=== PATIENT | male | born 1935 | race African-American/Black ===

== ENCOUNTER 2016-12-19 12:56 | Inpatient (IN) ==
--- NOTE | 2016-12-19 15:15 | EKG Report ---
Stationary ECG Study [facility] Test Date: 12/19/2016 3:16:22 PM Pat Name: JOSE CORONADO Department: Room: 319 Gender: M Elevator Builder: EDUARDO : 1935 Requested by: Mukul Flores Order Number: [id number] Reading MD: NISA HILTON Intervals [place] Rate: 59 P: 19 [place]: 150 QRS: 259 QRSD: 181 T: -12 QT: 421 QTc: 420 Interpretive Statements SINUS RHYTHM WITH SINUS ARRHYTHMIA RIGHT AXIS DEVIATION RIGHT BUNDLE BRANCH BLOCK POSSIBLE LEFT VENTRICULAR HYPERTROPHY INFERIOR MYOCARDIAL INFARCTION, PREVIOUSLY CITED Electronically Signed On 12-24-16 07:17:42 CDT by NISA HILTON [email or web address]
[2016-12-19] MEDS ORDERED: VANCOMYCIN INJ 1,000 MG in SODIUM CHLORIDE 0.9% 250 ML IV ONE (15:30)
[2016-12-19 15:50] LABS: Basophils # 0.1 10*3/uL (0.0-0.2); Eosinophils # 0.3 10*3/uL (0.0-0.87); Eosinophils % 3.1 % (0.00-10.9); Hematocrit 41.1 VOL% (42.0-52.0); Hemoglobin 13.2 GM/DL (14.0-18.0); Immature Granulocytes % 0.2 %; Immature Granulocytes Absolute 0.02 #; Lymphocytes # 2.1 10*3/uL (1.4-4.0); Lymphocytes % 25.2 % (21.2-54.2); Mean Corpuscular HGB Conc 32.1 GM/DL (32-36); Mean Corpuscular Hemoglobin 31 PG (27-34); Mean Corpuscular Volume 95.4 FL (87-102); Monocytes # 0.7 10*3/uL (0.11-0.8); Monocytes % 8.1 % (1.7-12.7); Neutrophils # 5.2 10*3/uL (1.4-7.4); Neutrophils % 62.4 % (38.7-73.9); Platelet Count 136 T/CUMM (130-400); Red Blood Count 4.31 MC/CUMM (3.8-5.5); Red Cell Distribution Width 13.7 % (9.3-17.3); White Blood Count 8.3 T/CUMM (4-12)
--- NOTE | 2016-12-19 15:51 | XRay Report ---
Referring Physician: Mukul Flores Exam: XR chest 1V portable Date: December 19, 2016 at 3:03 PM Reason: Preoperative respiratory evaluation Comparison: Chest one view portable September 08, 2014 Findings: The cardiac silhouette is again enlarged, and the patient is status post sternotomy. No focal consolidation, pneumothorax or pleural effusion is identified. No acute osseous process is seen. Impression: 1. Cardiomegaly. 2. No acute pulmonary process is identified. PROCEDURE INTERPRETED AT [facility] DEPARTMENT OF RADIOLOGY Final Report Signed by: Dr. Jonnie Spencer
[2016-12-19 16:03] LABS: INR 1.2; PT Patient Result 12.9 SECS; Partial Thromboplastin Time 27.5 SECS (0-40)
[2016-12-19] MEDS ORDERED: diphenhydrAMINE CAP 25 MG CAPSULE PO PRN (16:10)
[2016-12-19] MEDS ORDERED: MAGNESIUM HYDROXIDE SUSP 30 ML UDCUP PO PRN (16:10)
[2016-12-19] MEDS ORDERED: ONDANSETRON 4 MG/2 ML VIAL IV PRN (16:10)
[2016-12-19] MEDS ORDERED: TEMAZEPAM 7.5 MG CAPSULE PO PRN (16:10)
[2016-12-19 16:12] LABS: Albumin 3.3 G/DL (3.4-5.0); Bilirubin,Total 0.7 MG/DL (0.2-1.0); Calcium 9.2 MG/DL (8.5-10.1); Osmolality,Calculated 287.1 MOS/KG (273-304); Potassium 4.8 MMOL/L (3.5-5.1); Total Protein 7.1 G/DL (6.4-8.3)
[2016-12-19 17:16] LABS: Apearance,Urine Slightly Hazy (Clear); Bilirubin,Urine Negative (Negative); Blood, Urine Small mg/dL (Negative); Glucose,Urine (UA) Negative (Negative); Ketones,Urine Negative (Negative); Nitrite,Urine Negative (Negative); Protein,Urine Negative; RBC,Urine 2 /HPF (0-4); Squamous Epithelial Cell,Urine Occasional /HPF (0-10); Urine Color Yellow (Yellow); Urine Urobilinogen < 2.0 EU/DL (0.2-1.0); WBC,Urine 18 /HPF (0-6)
[2016-12-19] MEDS: DOCUSATE SODIUM 100 MG CAPSULE PO SCH (20:37)
[2016-12-19] MEDS ORDERED: MELOXICAM 7.5 MG TABLET PO PRN (20:57)
[2016-12-19] MEDS ORDERED: NITROGLYCERIN SL 0.4 MG TABLET SL PRN (20:57)
--- NOTE | 2016-12-19 21:03 | Cardiology Consult Note ---
I, Stephany Cosme RN, am scribing for, and in the presence of, Chris Lynn MD 21:02. Assessment and Plan - Time spent with patient Time spent with patient: Greater than 30 minutes (Due to assessment, planning, documentation, medication review) (1) Preoperative evaluation to rule out surgical contraindication Status: Acute Assessment and plan: The patient has CAD, but no active angina at this time Plan/recommendation: 1 continue beta-libertad Hold AHSAN inhibitor and/or Norvasc and low blood pressure Reduce aspirin 81 mg daily Watch carefully postop This patient's cardiac risk of noncardiac surgery relatively low. less than 2 % chance of [place] arrhythmia or heart failure You may proceed. I will follow along with. The above was discussed with the patient Thank you for allowing me to participate in this patient's care Current Visit: Yes (2) CAD (coronary artery disease) Status: Chronic Current Visit: Yes Qualifiers: Coronary Disease-Associated Artery/Lesion type: bypass graft [place] vs. transplanted heart: [place] heart Associated angina: without angina Qualified Code(s): I25.810 - Atherosclerosis of coronary artery bypass graft(s) without angina pectoris (3) Ischemic cardiomyopathy Status: Chronic Current Visit: Yes (4) Diabetes mellitus Status: Chronic Current Visit: Yes (5) Dyslipidemia Status: Chronic Current Visit: Yes (6) Hypertension Status: Chronic Current Visit: Yes History of Present Illness - Data of Consult Patient: known to practice within the last 3 years Consult date: 12/19/16 Requesting Physician: Mukul Flores - Consult Narrative Reason for consult: See preoperatively for surgery tomorrow 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 Barnard is a 81 year old male who is routinely followed by Dr. Crawford with a history of CAD, ischemic cardiomyopathy, NIDDM, dyslipidemia, hypertension, and PVD. He had CABG April 25, 2006 with SORENSON to LAD, saphenous vein to circumflex, and saphenous vein sequential to ramus and diagonal. June 2006 he had successful intervention of the circumflex graft by Dr. Crawford. July 2014 he had a heart cath that demonstrated severe disease of the mid right coronary artery. He was brought back in in August 2014 to attempt PCI of the mid right coronary artery, this was unsuccessful. Echo done August 30 of this year with ejection fraction of 35%, moderate mitral regurgitation, trace aortic regurgitation, and mild tricuspid regurgitation. He also has a history of a AAA repair, bilateral cataract surgery, cholecystectomy, and a surgery to his foot for gout. Family history includes father and sister with diabetes and mother with cancer. He reports he does not currently smoke he quit about 40 years ago. Mr. Barnard is being admitted today by Dr. Flores for anticipated left total hip replacement tomorrow. We are being asked to see him preoperatively. He denies having had any chest pain, shortness of breath, palpitations, or dizziness presently or recently. At the time of this note there are no vital signs or labs in the chart. EKG done today shows sinus rhythm with right bundle branch block, heart rate 59. CC: Mukul Flores MD - Home Medications and Allergies Home Medications: Home Medications Medication Instructions Recorded Confirmed Type Aspirin Tab 325 mg PO DAILY 03/30/16 12/19/16 History Carvedilol 12.5 mg PO BID 03/30/16 12/19/16 History Clopidogrel [Plavix] 75 mg PO DAILY 03/30/16 12/19/16 History Colchicine [Colcrys] 0.6 mg PO BID 03/30/16 12/19/16 History Cyanocobalamin Tab [Vitamin B12 100 mcg PO DAILY 03/30/16 12/19/16 History Tab] Furosemide 40 mg PO DAILY PRN 03/30/16 12/19/16 History Gabapentin 100 mg PO BID 03/30/16 12/19/16 History Lisinopril 40 mg PO DAILY 03/30/16 12/19/16 History Meloxicam [Mobic] 15 mg PO DAILY PRN 03/30/16 12/19/16 History Nitroglycerin Sl Tab [Nitrostat] 1 tablet SL Q5M PRN 03/30/16 12/19/16 History Tamsulosin [Flomax] 0.4 mg PO DAILY 03/30/16 12/19/16 History amLODIPine [Norvasc] 5 mg PO DAILY 03/30/16 12/19/16 History HYDROcodone/ACETAMIN 10-325 [[place] 1 tablet PO Q12H PRN 12/19/16 12/19/16 History 10-325] Simvastatin 10 mg PO BEDTIME 12/19/16 12/19/16 History Allergies/Adverse Reactions: Allergies Allergy/AdvReac Type Severity Reaction Status Date / Time No Known Allergies Allergy Verified 03/30/16 08:53 - Constitutional Constitutional: Present: as per HPI - EENT Eyes: Present: requires corrective lense. Absent: blurry vision, loss of vision Ears: Absent: decreased hearing, ear pain, tinnitus Nose, mouth and throat: Absent: dysphagia, epistaxis, headache(s), neck pain, sore throat - Cardiovascular Cardiovascular: Absent: chest pain at rest, chest pain with activity, diaphoresis, dyspnea, dyspnea on exertion, edema, radiating jaw, neck or arm pain, lightheadedness, orthopnea, palpitations - Respiratory Respiratory: Absent: cough, dyspnea, hemoptysis, dyspnea on exertion, wheezing - Gastrointestinal Gastrointestinal: Absent: abdominal pain, constipation, diarrhea, hematemesis, hematochezia, melena, nausea, vomiting - Genitourinary Genitourinary: Absent: dysuria, hematuria - Musculoskeletal Musculoskeletal: Present: limited range of motion, muscle weakness - Neurological Neurological: Present: abnormal gait. Absent: abnormal speech, confusion, dizziness, frequent falls, headache(s), syncope - Psychiatric Psychiatric: Absent: anxiety, depression - Endocrine Endocrine: Present: fatigue - Hematologic/Lymphatic Hematologic/Lymphatic: Absent: easy bleeding, easy bruising Medical,Surgical,& Family Hx - Medical History Cardio: History of: CAD, Hypertension, [place] Endocrine: History of: Diabetes Mellitus (NIDDM), Dyslipidemia Rheumatology: History of;: Gout Respiratory: History of: Obstructive Sleep Apnea (Does not use c-pap machine) Genitourinary: History of: Prostate Problems (Takes Flomax) Gastrointestinal: History of: Bowel Obstruction, GI Problems (Pacreatic cyst) Musculoskeletal: History of: Back/Neck Problems (Back pain), Musculoskeletal Problems (Arthritis) - Surgical History Cardiac Surgeries: Sugical HX of: Cardiac Catheterization, Cardiac Surgery ( CABG 03/2006) HEENT Surgeries: Surgical HX of: Eye Surgery (Cataracts removed bilaterally) Abdominal Surgeries: Surgical HX of: Abdominal Surgery (Bowel obstruction), Appendectomy, Cholecystectomy, Colonoscopy, EGD Orthopedic Surgeries: Surgical HX of;: Orthopedic Surgery (RIGHT knee scope) Additional Surgical History: AAA repair - Family History Family History: Reports;: Family Cancer (Mother), Family Diabetes (Father and sister) - Social History Smoking Status: Former smoker (Reportedly quit smoking about 40 years ago) Have you smoked in the last 12 months: No Frequency of Alcohol Use: None Type of Drug Use: None Marital Status: Lives With:: Spouse Functional capacity: uses cane/walker (Has been using crutches because of his hip) Physical Examination Vital Signs Temp Pulse Resp BP Pulse Ox 98.2 F 60 18 140/82 98 12/19/16 14:10 12/19/16 14:10 12/19/16 14:10 12/19/16 14:10 12/19/16 14:10 General: Present: Appears Well, No Apparent Distress HEENT: Present: PERRL, Mucus Membranes Moist Neck: Present: Supple Neck, Midline Trachea, No Bruit Cardiac: Present: Reg Rate and Rhythm, No Murmur. Absent: Tachycardia Lungs: Present: Normal Breath Sounds, No Wheeze, Rales, Rhonchi. Absent: Oxygen Neuro: Absent: Resting Tremor, Essential Tremor Abdomen: Present: Soft, Active Bowel Sounds, Non-Tender. Absent: Distended Skin: Present: Clear Musculoskeletal: Present: Decreased Range of Motion Gait: Present: Poor Gait Extremities: Present: No Edema, Normal Upper Extr. Pulses, Normal Lower Extr. Pulses. Absent: Normal Gait Result/EKG - Labs CBC & BMP: 12/19/16 15:24 12/19/16 15:24 Labs: Laboratory Results - last 24 hr 12/19/16 12/19/16 12/19/16 15:24 15:24 15:24 WBC 8.3 RBC 4.31 Hgb 13.2 L Hct 41.1 L MCV 95.4 MCH 31 MCHC 32.1 RDW 13.7 Plt Count 136 MPV 13.0 H Neut % (Auto) 62.4 Lymph % (Auto) 25.2 [place] % (Auto) 8.1 Eos % (Auto) 3.1 Baso % (Auto) 1.0 H Neut # (Auto) 5.2 Lymph # (Auto) 2.1 [place] # (Auto) 0.7 Eos # (Auto) 0.3 Baso # (Auto) 0.1 Immature Gran % 0.2 Nucleated RBC % 0.0 Immature Gran # 0.02 Nucleated RBCs # 0.00 INR 1.2 PT Patient/Control Mix 12.9 Circ Anticoag PTT 27.5 Sodium 142 Potassium 4.8 Chloride 109 H Carbon Dioxide 27 Anion Gap 10.8 BUN 30 H Creatinine 1.10 GFR Calculation 94 BUN/Creatinine Ratio 27.00 H Glucose 88 Calculated Osmolality 287.1 Calcium 9.2 Total Bilirubin 0.70 AST 49 H ALT 49 Alkaline Phosphatase 125 H Total Protein 7.1 Albumin 3.3 L Globulin 3.8 H Albumin/Globulin Ratio 0.8 L Urine Color Urine Appearance Urine pH Ur Specific [place] Urine Protein Urine Glucose (UA) Urine Ketones Urine Blood Urine Nitrate Urine Bilirubin Urine Urobilinogen Urine Leukocytes Urine RBC Urine WBC Ur Squamous Epith Cells Ur Culture Indicated? Blood Type Antibody Screen 12/19/16 12/19/16 15:24 Unknown WBC RBC Hgb Hct MCV MCH MCHC RDW Plt Count MPV Neut % (Auto) Lymph % (Auto) [place] % (Auto) Eos % (Auto) Baso % (Auto) Neut # (Auto) Lymph # (Auto) [place] # (Auto) Eos # (Auto) Baso # (Auto) Immature Gran % Nucleated RBC % Immature Gran # Nucleated RBCs # INR PT Patient/Control Mix Circ Anticoag PTT Sodium Potassium Chloride Carbon Dioxide Anion Gap BUN Creatinine GFR Calculation BUN/Creatinine Ratio Glucose Calculated Osmolality Calcium Total Bilirubin AST ALT Alkaline Phosphatase Total Protein Albumin Globulin Albumin/Globulin Ratio Urine Color Yellow Urine Appearance Slightly hazy Urine pH 5.0 Ur Specific [place] 1.010 Urine Protein Negative Urine Glucose (UA) Negative Urine Ketones Negative Urine Blood Small Urine Nitrate Negative Urine Bilirubin Negative Urine Urobilinogen < 2.0 H Urine Leukocytes Small H Urine RBC 2 Urine WBC 18 Ur Squamous Epith Cells Occasional Ur Culture Indicated? Results to follow Blood Type O NEGATIVE Antibody Screen Negative - EKG EKG results: interpreted by me EKG shows: sinus rhythm IShane Dale, MD, personally performed the services described in this documentation, ascribed by Stephany Cosme RN in my presence, and it is both accurate and complete .
[2016-12-19] MEDS: GABAPENTIN 100 MG CAPSULE PO SCH (23:04)
[2016-12-19] MEDS: COLCHICINE 0.6 MG TABLET PO SCH (23:04)
[2016-12-19] MEDS: SIMVASTATIN 10 MG TABLET PO SCH (23:05)
[2016-12-19] MEDS: CARVEDILOL 12.5 MG TABLET PO SCH (23:05)
[2016-12-20] MEDS: SODIUM CHLORIDE 0.9% 1,000 ML IV SCH ×4 (01:41→21:23)
[2016-12-20 04:38] LABS: Basophils # 0.1 10*3/uL (0.0-0.2); Basophils % 0.8 % (0.0-0.8); Eosinophils # 0.3 10*3/uL (0.0-0.87); Eosinophils % 2.8 % (0.00-10.9); Hematocrit 37.4 VOL% (42.0-52.0); Hemoglobin 12.1 GM/DL (14.0-18.0); Immature Granulocytes % 0.3 %; Immature Granulocytes Absolute 0.03 #; Lymphocytes # 2.3 10*3/uL (1.4-4.0); Lymphocytes % 25.6 % (21.2-54.2); Mean Corpuscular HGB Conc 32.4 GM/DL (32-36); Mean Corpuscular Hemoglobin 30 PG (27-34); Mean Corpuscular Volume 92.6 FL (87-102); Mean Platelet Volume 13.2 FL (9.6-12.0); Monocytes # 0.9 10*3/uL (0.11-0.8); Monocytes % 10.1 % (1.7-12.7); Neutrophils # 5.3 10*3/uL (1.4-7.4); Neutrophils % 60.4 % (38.7-73.9); Platelet Count 124 T/CUMM (130-400); Red Blood Count 4.04 MC/CUMM (3.8-5.5); Red Cell Distribution Width 13.9 % (9.3-17.3); White Blood Count 8.8 T/CUMM (4-12)
[2016-12-20] MEDS ORDERED: VANCOMYCIN INJ 1,000 MG in SODIUM CHLORIDE 0.9% 250 ML IV ONE (05:00)
[2016-12-20 05:22] LABS: Calcium 8.8 MG/DL (8.5-10.1); Osmolality,Calculated 287.1 MOS/KG (273-304); Potassium 4.5 MMOL/L (3.5-5.1)
[2016-12-20] MEDS ORDERED: TRANEXAMIC ACID 1,000 MG/10 ML VIAL IV ONE (06:22)
[2016-12-20] MEDS ORDERED: ceFAZolin 2,000 MG in PREMIX 1 EACH IV ONE (06:30)
--- NOTE | 2016-12-20 07:27 | Orthopedic Progress Note ---
Assessment and Plan (1) Left displaced femoral neck fracture Status: Acute Assessment and plan: Plan left total hip arthroplasty today Appreciate cardiology consult Patient desires swing bed at discharge, will consult social work for this Current Visit: Yes (2) Primary osteoarthritis of left hip Status: Acute Assessment and plan: See above Current Visit: Yes Orthopedics - Subjective Interval history: Patient has no new complaints this morning. He is comfortable. States he is ready for surgery. Left lower extremity exam is unchanged from yesterday. Exam - Constitutional Vitals: Period Temp Pulse Resp BP Sys/Roberts Pulse Ox Last 24 Hr 98.2 F-99.9 F 59-66 16-20 117-141/74-82 97-99 Results - Labs CBC & BMP: 12/20/16 03:56 12/20/16 03:56
[2016-12-20] MEDS: DOCUSATE SODIUM 100 MG CAPSULE PO SCH ×3 (08:00→21:23)
[2016-12-20] MEDS: CYANOCOBALAMIN 100 MCG TABLET PO SCH (08:00)
[2016-12-20] MEDS: GABAPENTIN 100 MG CAPSULE PO SCH ×2 (08:00→21:22)
[2016-12-20] MEDS: TAMSULOSIN 0.4 MG CAPSULE PO SCH (08:00)
[2016-12-20] MEDS: COLCHICINE 0.6 MG TABLET PO SCH ×2 (08:00→21:22)
[2016-12-20] MEDS: ASPIRIN CHEW 81 MG TABLET PO SCH (08:00)
[2016-12-20] MEDS: amLODIPine 5 MG TABLET PO SCH (08:40)
[2016-12-20] MEDS: CARVEDILOL 12.5 MG TABLET PO SCH ×2 (08:40→21:22)
[2016-12-20] MEDS: LISINOPRIL 20 MG TABLET PO SCH (08:40)
[2016-12-20] MEDS ORDERED: BUPIVACAINE 0.5% 50 ML VIAL ONE (09:00)
[2016-12-20] MEDS ORDERED: CLOPIDOGREL 75 MG TABLET PO SCH (09:00)
[2016-12-20] MEDS ORDERED: EPINEPHrine 1 MG/ML VIAL ONE (09:00)
[2016-12-20] MEDS ORDERED: methylPREDNISolone SOD SUC 125 MG/2 ML VIAL ONE (09:01)
[2016-12-20] MEDS ORDERED: MORPHINE 10 MG/1 ML VIAL ONE (09:01)
[2016-12-20] MEDS ORDERED: PHENYLEPHRINE 1 MG/10 ML SYRINGE IV ONE (09:37)
[2016-12-20] MEDS ORDERED: PHENYLEPHRINE 50 MG/5 ML VIAL ONE (09:37)
[2016-12-20] MEDS ORDERED: MAGNESIUM HYDROXIDE SUSP 30 ML UDCUP PO PRN (12:24)
--- NOTE | 2016-12-20 12:42 | Anesthesia Post-Op ---
Anesthesia Post OP - Post Ansesthetic Evaluation Patient seen in post op: Yes Resp: within normal limits CV: within normal limits Mental: within normal limits Temp: within normal limits [id number]: within normal limits Nausea and Vomiting: within normal limits Pain: within normal limits
[2016-12-20] MEDS ORDERED: MIDAZOLAM 2 MG/2 ML VIAL ONE (12:45)
[2016-12-20] MEDS ORDERED: KETAMINE 500 MG/10 ML VIAL ONE (12:45)
[2016-12-20] MEDS ORDERED: TUBERCULIN SKIN TEST 0.1 ML SYRINGE INTRADERM ONE (13:15)
--- NOTE | 2016-12-20 13:17 | Case Mgmt Physician Query Form ---
TB Signs and Symptoms Screening ([place]) INSTRUCTIONS: To be completed annually on residents/staff with a significant Tuberculin Skin Test (TST) upon admission/hire or a prior significant TST. To be completed on all staff at hire. Please respond to each listed symptom with an (X) in either the "YES" or "NO" box. Do you currently have any of the following symptoms: YES NO ( ) (x ) A cough If yes, is it: ( ) Productive ( ) Non- productive ( ) (x ) Hemoptysis (spitting up blood) ( ) (x ) Chest pains ( ) (x ) Weight Loss ( ) (x ) Fever ( ) (x ) Night Sweats ( ) (xx ) Weakness ( ) (x ) Loss of Appetite ( ) (x ) Difficulty Breathing If you answered YES" to any of the above questions, how long have symptoms been present? Comments: If you have any questions, please contact me. Thank you, Rachel Bey RN, Office : [phone] Email : [email or web address]
[2016-12-20 13:36] LABS: Apearance,Urine CLEAR (Clear); Bacteria,Urine Occasional /HPF (Few); Bilirubin,Urine Negative (Negative); Blood, Urine Small mg/dL (Negative); Glucose,Urine (UA) Negative (Negative); Ketones,Urine Negative (Negative); Nitrite,Urine Positive (Negative); Protein,Urine Negative; RBC,Urine 2 /HPF (0-4); Squamous Epithelial Cell,Urine Occasional /HPF (0-10); Urine Color Straw (Yellow); Urine Specific Gravity 1.009 (1.001-1.035); Urine Urobilinogen < 2.0 EU/DL (0.2-1.0); WBC,Urine 11 /HPF (0-6)
[2016-12-20] MEDS ORDERED: ACETAMINOPHEN 325 MG TABLET PO PRN (16:12)
[2016-12-20] MEDS: ceFAZolin 2,000 MG in PREMIX 1 EACH IV SCH ×2 (17:24→23:42)
--- NOTE | 2016-12-20 17:27 | XRay Report ---
History: Left hip replacement Date: 12/20/2016 Study: Left hip single view Comparison exam: No previous The patient is immediately status post left hip replacement. The left hip prosthesis appears well conjugated. Surgical drain and skin leo are noted in the soft tissues lateral to the hip. There is no radiographic evidence of complication. Impression: Generally satisfactory postoperative appearance of the left hip prosthesis on this single view PROCEDURE INTERPRETED AT [facility] DEPARTMENT OF RADIOLOGY Final Report Signed by: Dr. Iesha Yadav
[2016-12-20] MEDS: ACETAMINOPHEN 500 MG TABLET PO SCH ×2 (17:38→21:27)
--- NOTE | 2016-12-20 20:53 | Cardiology Progress Note ---
Assessment and Plan (1) Preoperative evaluation to rule out surgical contraindication Status: Acute Assessment and plan: The patient has CAD, but no active angina at this time Plan/recommendation: 1 continue beta-libertad Hold AHSNA inhibitor and/or Norvasc and low blood pressure Reduce aspirin 81 mg daily Watch carefully postop This patient's cardiac risk of noncardiac surgery relatively low. less than 2 % chance of [place] arrhythmia or heart failure You may proceed. I will follow along with. The above was discussed with the patient Thank you for allowing me to participate in this patient's care 12/20/16: plan/recommendation/assessment: No postop ischemia. No arrhythmias so far. Blood pressure is adequate. Continue meds. Monitor very carefully for signs and symptoms of ischemia. I had a long discussion with the patient, his , his daughter. They voiced understanding and agree with the plan. Current Visit: Yes (2) CAD (coronary artery disease) Status: Chronic Current Visit: Yes Qualifiers: Coronary Disease-Associated Artery/Lesion type: bypass graft [place] vs. transplanted heart: [place] heart Associated angina: without angina Qualified Code(s): I25.810 - Atherosclerosis of coronary artery bypass graft(s) without angina pectoris (3) Ischemic cardiomyopathy Status: Chronic Current Visit: Yes (4) Diabetes mellitus Status: Chronic Current Visit: Yes (5) Dyslipidemia Status: Chronic Current Visit: Yes (6) Hypertension Status: Chronic Current Visit: Yes Cardiology - PN: Subj Interval history: I am seeing him postop. No chest pain or shortness of breath. Exam (Progress Note) - Constitutional Vitals: Period Temp Pulse Resp BP Sys/Roberts Pulse Ox Last 24 Hr 97.2 F-99.9 F 49-66 16-20 95-141/51-78 96-100 Exam: HEENT: Pupils equal, reactive to light and accommodation Neck: NoJVD or bruit Lungs clear to auscultation Heart: Regular rhythm rate with normal S1 and S2. Apical S4 Abdomen: No hepatosplenomegaly Spine/extremities: No clubbing, cyanosis, or edema Neuro: Nonfocal Psych: No depression or anxiety Result/EKG - Labs CBC & BMP: 12/20/16 03:56 12/20/16 03:56 Lab Results: I have reviewed the past 24 hour labs Labs: Laboratory Results - last 24 hr 12/20/16 12/20/16 12/20/16 03:56 03:56 10:20 WBC 8.8 RBC 4.04 Hgb 12.1 L Hct 37.4 L MCV 92.6 MCH 30 MCHC 32.4 RDW 13.9 Plt Count 124 L MPV 13.2 H Neut % (Auto) 60.4 Lymph % (Auto) 25.6 [place] % (Auto) 10.1 Eos % (Auto) 2.8 Baso % (Auto) 0.8 Neut # (Auto) 5.3 Lymph # (Auto) 2.3 [place] # (Auto) 0.9 H Eos # (Auto) 0.3 Baso # (Auto) 0.1 Immature Gran % 0.3 Nucleated RBC % 0.0 Immature Gran # 0.03 Nucleated RBCs # 0.00 Sodium 142 Potassium 4.5 Chloride 110 H Carbon Dioxide 23 Anion Gap 13.5 BUN 27 H Creatinine 1.10 GFR Calculation 94 BUN/Creatinine Ratio 24.00 H Glucose 100 Calculated Osmolality 287.1 Calcium 8.8 Urine Color Straw Urine Appearance Clear Urine pH 5.0 Ur Specific [place] 1.009 Urine Protein Negative Urine Glucose (UA) Negative Urine Ketones Negative Urine Blood Small Urine Nitrate Positive H Urine Bilirubin Negative Urine Urobilinogen < 2.0 H Urine Leukocytes Trace Urine RBC 2 Urine WBC 11 Ur Squamous Epith Cells Occasional Urine Bacteria Occasional Ur Culture Indicated? Results to follow - EKG EKG results: interpreted by me Quality Measures - VTE Contraindication to Pharmacological VTE Prophylaxis: Already on Theraputic Agent , No Prophylaxis Needed
[2016-12-20] MEDS: SIMVASTATIN 10 MG TABLET PO SCH (21:22)
[2016-12-21] MEDS: ACETAMINOPHEN 500 MG TABLET PO SCH ×2 (04:04→12:37)
[2016-12-21] MEDS: SODIUM CHLORIDE 0.9% 1,000 ML IV SCH ×2 (04:14→06:59)
[2016-12-21 04:31] LABS: Basophils % 0.2 % (0.0-0.8); Eosinophils % 0.1 % (0.00-10.9); Hematocrit 33.4 VOL% (42.0-52.0); Hemoglobin 10.6 GM/DL (14.0-18.0); Immature Granulocytes % 0.6 %; Immature Granulocytes Absolute 0.08 #; Lymphocytes # 1.8 10*3/uL (1.4-4.0); Lymphocytes % 13.1 % (21.2-54.2); Mean Corpuscular HGB Conc 31.7 GM/DL (32-36); Mean Corpuscular Hemoglobin 30 PG (27-34); Mean Corpuscular Volume 93.3 FL (87-102); Monocytes # 1.5 10*3/uL (0.11-0.8); Monocytes % 10.7 % (1.7-12.7); Neutrophils # 10.3 10*3/uL (1.4-7.4); Neutrophils % 75.3 % (38.7-73.9); Platelet Count 113 T/CUMM (130-400); Red Blood Count 3.58 MC/CUMM (3.8-5.5); Red Cell Distribution Width 13.8 % (9.3-17.3); White Blood Count 13.7 T/CUMM (4-12)
[2016-12-21 05:04] LABS: Calcium 8.1 MG/DL (8.5-10.1); Osmolality,Calculated 284.3 MOS/KG (273-304); Potassium 4.6 MMOL/L (3.5-5.1)
--- NOTE | 2016-12-21 07:12 | Orthopedic Progress Note ---
Assessment and Plan (1) Left displaced femoral neck fracture Status: Acute Assessment and plan: Out of bed with therapy twice daily Continue Plavix Discontinue Hemovac Continue antibiotics for E. coli UTI Discharge planning, swing bed Current Visit: Yes (2) Primary osteoarthritis of left hip Status: Acute Assessment and plan: See above Current Visit: Yes Orthopedics - Subjective Interval history: Patient complains of some soreness in the left hip today. No acute events overnight. On exam his incisions clean and dry his Hemovac is in place. He is neurovascular intact in left foot. Exam - Constitutional Vitals: Period Temp Pulse Resp BP Sys/Roberts Pulse Ox Last 24 Hr 97.2 F-99.2 F 49-63 16-20 95-137/51-78 96-100 Results - Labs CBC & BMP: 12/21/16 03:50 12/21/16 03:50 Quality Measures - VTE Contraindication to Pharmacological VTE Prophylaxis: Already on Theraputic Agent , No Prophylaxis Needed
--- NOTE | 2016-12-21 08:19 | EKG Report ---
Stationary ECG Study [facility] Test Date: 12/21/2016 8:19:15 AM Pat Name: JOSE CORONADO Department: Room: 319 Gender: M Science Technician: EUGENE : 1935 Requested by: Geovani Lynn Order Number: [id number] Reading MD: GEOVANI LYNN Intervals [place] Rate: 64 P: 42 [place]: 139 QRS: -86 QRSD: 178 T: -16 QT: 434 QTc: 444 Interpretive Statements SINUS RHYTHM RIGHT BUNDLE BRANCH BLOCK VOLTAGE CRITERIA FOR LVH ANTERIOR MYOCARDIAL INFARCTION, OF INDETERMINATE AGE INFERIOR MYOCARDIAL INFARCTION, OF INDETERMINATE AGE Electronically Signed On 12-21-16 13:13:10 CDT by GEOVANI LYNN [id number]
[2016-12-21] MEDS: COLCHICINE 0.6 MG TABLET PO SCH ×2 (09:13→20:23)
[2016-12-21] MEDS: DOCUSATE SODIUM 100 MG CAPSULE PO SCH ×4 (09:13→20:49)
[2016-12-21] MEDS: GABAPENTIN 100 MG CAPSULE PO SCH ×2 (09:13→20:24)
[2016-12-21] MEDS: LISINOPRIL 20 MG TABLET PO SCH (09:13)
[2016-12-21] MEDS: ASPIRIN 325 MG TABLET PO SCH (09:13)
[2016-12-21] MEDS: CYANOCOBALAMIN 100 MCG TABLET PO SCH (09:13)
[2016-12-21] MEDS: CARVEDILOL 12.5 MG TABLET PO SCH ×2 (09:13→20:24)
[2016-12-21] MEDS: amLODIPine 5 MG TABLET PO SCH (09:13)
[2016-12-21] MEDS: TAMSULOSIN 0.4 MG CAPSULE PO SCH (09:13)
[2016-12-21] MEDS: ASPIRIN CHEW 81 MG TABLET PO SCH (09:14)
[2016-12-21] MEDS: cefTRIAXone 1,000 MG in SODIUM CHLORIDE 0.9% 100 ML IV SCH (09:14)
[2016-12-21] MEDS: SIMVASTATIN 10 MG TABLET PO SCH (20:24)
--- NOTE | 2016-12-21 20:24 | Cardiology Progress Note ---
I, Stephany Cosme RN, am scribing for, and in the presence of, Chris Lynn MD 20:24. Assessment and Plan (1) Preoperative evaluation to rule out surgical contraindication Status: Acute Assessment and plan: Initial assessment and plan 12/19/2016: The patient has CAD, but no active angina at this time Plan/recommendation: 1 continue beta-libertad Hold AHSAN inhibitor and/or Norvasc and low blood pressure Reduce aspirin 81 mg daily Watch carefully postop This patient's cardiac risk of noncardiac surgery relatively low. less than 2 % chance of [place] arrhythmia or heart failure You may proceed. I will follow along with. The above was discussed with the patient Thank you for allowing me to participate in this patient's care 12/20/16: plan/recommendation/assessment: No postop ischemia. No arrhythmias so far. Blood pressure is adequate. Continue meds. Monitor very carefully for signs and symptoms of ischemia. I had a long discussion with the patient, his , his daughter. They voiced understanding and agree with the plan. Assessment and plan 12/21/2016: No chest pain or shortness of breath. Ambulating well. He remains on his aspirin. Will restart the Plavix when Dr. Flores says it is okay to do so. Blood pressure is controlled. Continue to watch for any signs or symptoms of cardiac problems postop. Current Visit: Yes (2) CAD (coronary artery disease) Status: Chronic Current Visit: Yes Qualifiers: Coronary Disease-Associated Artery/Lesion type: bypass graft [place] vs. 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 Barnard is 1 day postop left total hip. He is resting in bed in no acute distress. He denies chest pain, shortness of breath, palpitations, or dizziness. Dressing to left hip noted to be dry and intact. Vital signs been stable. Labs today are unremarkable. EKG done this morning showed sinus rhythm with heart rate of 64. Exam (Progress Note) - Constitutional Vitals: Period Temp Pulse Resp BP Sys/Roberts Pulse Ox Last 24 Hr 97.2 F-99.2 F 49-64 16-20 95-137/51-75 96-100 General appearance: no acute distress, morbidly obese - Head Head exam: Absent: abrasion, hematoma - Eye Eye exam: Absent: periorbital swelling, laceration to eyelids - Neck Neck exam: Absent: tenderness - Respiratory Respiratory exam: Present: clear to auscultation bilaterally. Absent: accessory muscle use, chest wall tenderness - Cardiovascular Cardiovascular exam: Present: regular rate and rhythm. Absent: rubs - GI/Abdominal GI/Abdominal exam: Present: normal bowel sounds, soft. Absent: distended, tenderness - Extremities Exam Extremities exam: Present: other (Dressing to left hip dry and intact). Absent : edema - Neurological Exam Neurological exam: Present: alert, oriented X3 - Psychiatric Psychiatric exam: Present: normal affect, normal mood - Skin Skin exam: Present: warm, dry Result/EKG - Labs CBC & BMP: 12/21/16 03:50 12/21/16 03:50 Lab Results: I have reviewed the past 24 hour labs Labs: Laboratory Results - last 24 hr 12/20/16 12/21/16 12/21/16 10:20 03:50 03:50 WBC 13.7 H D RBC 3.58 L Hgb 10.6 L Hct 33.4 L MCV 93.3 MCH 30 MCHC 31.7 L RDW 13.8 Plt Count 113 L MPV 13.0 H Neut % (Auto) 75.3 H Lymph % (Auto) 13.1 L [place] % (Auto) 10.7 Eos % (Auto) 0.1 Baso % (Auto) 0.2 Neut # (Auto) 10.3 H Lymph # (Auto) 1.8 [place] # (Auto) 1.5 H Eos # (Auto) 0.0 Baso # (Auto) 0.0 Immature Gran % 0.6 Nucleated RBC % 0.0 Immature Gran # 0.08 Nucleated RBCs # 0.00 Sodium 141 Potassium 4.6 Chloride 107 Carbon Dioxide 24 Anion Gap 14.6 BUN 20 H Creatinine 1.00 GFR Calculation 106 BUN/Creatinine Ratio 20.00 Glucose 124 H Calculated Osmolality 284.3 Calcium 8.1 L Urine Color Straw Urine Appearance Clear Urine pH 5.0 Ur Specific [place] 1.009 Urine Protein Negative Urine Glucose (UA) Negative Urine Ketones Negative Urine Blood Small Urine Nitrate Positive H Urine Bilirubin Negative Urine Urobilinogen < 2.0 H Urine Leukocytes Trace Urine RBC 2 Urine WBC 11 Ur Squamous Epith Cells Occasional Urine Bacteria Occasional Ur Culture Indicated? Results to follow - EKG EKG results: interpreted by me EKG shows: sinus rhythm Quality Measures - VTE Contraindication to Pharmacological VTE Prophylaxis: Already on Theraputic Agent , No Prophylaxis Needed I, Chris Lynn MD, personally performed the services described in this documentation, ascribed by Stephany Cosme RN in my presence, and it is both accurate and complete .
[2016-12-22 06:28] LABS: Basophils # 0.1 10*3/uL (0.0-0.2); Basophils % 0.5 % (0.0-0.8); Eosinophils # 0.1 10*3/uL (0.0-0.87); Eosinophils % 0.4 % (0.00-10.9); Hematocrit 32.1 VOL% (42.0-52.0); Hemoglobin 10.7 GM/DL (14.0-18.0); Immature Granulocytes % 0.7 %; Lymphocytes % 13.4 % (21.2-54.2); Mean Corpuscular HGB Conc 33.3 GM/DL (32-36); Mean Corpuscular Hemoglobin 31 PG (27-34); Mean Corpuscular Volume 92.5 FL (87-102); Mean Platelet Volume 13.1 FL (9.6-12.0); Monocytes # 2.2 10*3/uL (0.11-0.8); Monocytes % 14.3 % (1.7-12.7); Neutrophils # 10.8 10*3/uL (1.4-7.4); Neutrophils % 70.7 % (38.7-73.9); Platelet Count 117 T/CUMM (130-400); Red Blood Count 3.47 MC/CUMM (3.8-5.5); Red Cell Distribution Width 13.9 % (9.3-17.3); White Blood Count 15.3 T/CUMM (4-12)
[2016-12-22 07:01] LABS: Calcium 8.6 MG/DL (8.5-10.1); Magnesium 1.7 MG/DL (1.8-2.4); Osmolality,Calculated 279.7 MOS/KG (273-304); Potassium 4.3 MMOL/L (3.5-5.1)
[2016-12-22] MEDS: cefTRIAXone 1,000 MG in SODIUM CHLORIDE 0.9% 100 ML IV SCH (09:09)
--- NOTE | 2016-12-22 09:38 | Orthopedic Progress Note ---
Assessment and Plan (1) Left displaced femoral neck fracture Status: Acute Assessment and plan: Ambulate with therapy daily Continue Plavix Continue antibiotics for E. coli UTI Swing bed on Saturday Current Visit: Yes (2) Primary osteoarthritis of left hip Status: Acute Assessment and plan: See above Current Visit: Yes Orthopedics - Subjective Interval history: No new complaints this morning. Patient was able to ambulate to the door and back twice yesterday and once this morning. On exam he has got mild edema in the left thigh. Incision is clean and dry. Neurovascular exam is unchanged. Exam - Constitutional Vitals: Period Temp Pulse Resp BP Sys/Roberts Pulse Ox Last 24 Hr 97.7 F-99.6 F 61-70 17-20 104-137/30-79 95-100 Results - Labs CBC & BMP: 12/22/16 05:01 12/22/16 05:01 Quality Measures - VTE Contraindication to Pharmacological VTE Prophylaxis: Already on Theraputic Agent , No Prophylaxis Needed
[2016-12-22] MEDS: CYANOCOBALAMIN 100 MCG TABLET PO SCH (09:49)
[2016-12-22] MEDS: ASPIRIN 325 MG TABLET PO SCH (09:49)
[2016-12-22] MEDS: COLCHICINE 0.6 MG TABLET PO SCH ×2 (09:50→21:26)
[2016-12-22] MEDS: GABAPENTIN 100 MG CAPSULE PO SCH ×2 (09:50→21:25)
[2016-12-22] MEDS: TAMSULOSIN 0.4 MG CAPSULE PO SCH (09:51)
[2016-12-22] MEDS: DOCUSATE SODIUM 100 MG CAPSULE PO SCH ×4 (09:51→20:28)
[2016-12-22] MEDS: LISINOPRIL 20 MG TABLET PO SCH (09:53)
[2016-12-22] MEDS: CARVEDILOL 12.5 MG TABLET PO SCH ×2 (09:54→21:25)
[2016-12-22] MEDS: amLODIPine 5 MG TABLET PO SCH (09:54)
[2016-12-22] MEDS: SIMVASTATIN 10 MG TABLET PO SCH (21:26)
--- NOTE | 2016-12-22 21:29 | Cardiology Progress Note ---
Assessment and Plan (1) Preoperative evaluation to rule out surgical contraindication Status: Acute Assessment and plan: Initial assessment and plan 12/19/2016: The patient has CAD, but no active angina at this time Plan/recommendation: 1 continue beta-libertad Hold AHSAN inhibitor and/or Norvasc and low blood pressure Reduce aspirin 81 mg daily Watch carefully postop This patient's cardiac risk of noncardiac surgery relatively low. less than 2 % chance of [place] arrhythmia or heart failure You may proceed. I will follow along with. The above was discussed with the patient Thank you for allowing me to participate in this patient's care 12/20/16: plan/recommendation/assessment: No postop ischemia. No arrhythmias so far. Blood pressure is adequate. Continue meds. Monitor very carefully for signs and symptoms of ischemia. I had a long discussion with the patient, his , his daughter. They voiced understanding and agree with the plan. Assessment and plan 12/21/2016: No chest pain or shortness of breath. Ambulating well. He remains on his aspirin. Will restart the Plavix when Dr. Flores says it is okay to do so. Blood pressure is controlled. Continue to watch for any signs or symptoms of cardiac problems postop. 12/22/16: Assessment/plan/recommendation: No suggestion of ischemia. His blood pressure is borderline low. Will reduce the lisinopril to 2.5 mg p.o. every morning. Hold if systolic blood pressure is less than 120 mmHg at the dose -- and give hold parameters. Will stop the amlodipine for now. He could be restarted later, depending on when and if the blood pressure increases. I encouraged the patient to ambulate as best he can and to participate with the instructions of the physical therapist. He voices understanding and agrees with plan. Current Visit: Yes (2) CAD (coronary artery disease) Status: Chronic Current Visit: Yes Qualifiers: Coronary Disease-Associated Artery/Lesion type: bypass graft [place] vs. transplanted heart: [place] heart Associated angina: without angina Qualified Code(s): I25.810 - Atherosclerosis of coronary artery bypass graft(s) without angina pectoris (3) Ischemic cardiomyopathy Status: Chronic Current Visit: Yes (4) Diabetes mellitus Status: Chronic Current Visit: Yes (5) Dyslipidemia Status: Chronic Current Visit: Yes (6) Hypertension Status: Chronic Current Visit: Yes Cardiology - PN: Subj Interval history: No chest pain or shortness of breath. Exam (Progress Note) - Constitutional Vitals: Period Temp Pulse Resp BP Sys/Roberts Pulse Ox Last 24 Hr 98.5 F-99.6 F 61-106 17-21 90-112/30-69 93-99 Exam: HEENT: Pupils equal, reactive to light and accommodation Neck: NoJVD or bruit Lungs clear to auscultation Heart: Regular rhythm rate with normal S1 and S2. Apical S4 Abdomen: No hepatosplenomegaly Spine/extremities: No clubbing, cyanosis, or edema Neuro: Nonfocal Psych: No depression or anxiety Result/EKG - Labs CBC & BMP: 12/22/16 05:01 12/22/16 05:01 Lab Results: I have reviewed the past 24 hour labs Labs: Laboratory Results - last 24 hr 12/22/16 12/22/16 05:01 05:01 WBC 15.3 H RBC 3.47 L Hgb 10.7 L Hct 32.1 L MCV 92.5 MCH 31 MCHC 33.3 RDW 13.9 Plt Count 117 L MPV 13.1 H Neut % (Auto) 70.7 Lymph % (Auto) 13.4 L [place] % (Auto) 14.3 H Eos % (Auto) 0.4 Baso % (Auto) 0.5 Neut # (Auto) 10.8 H Lymph # (Auto) 2.0 [place] # (Auto) 2.2 H Eos # (Auto) 0.1 Baso # (Auto) 0.1 Immature Gran % 0.7 Nucleated RBC % 0.0 Immature Gran # 0.10 Nucleated RBCs # 0.00 Sodium 138 Potassium 4.3 Chloride 106 Carbon Dioxide 20 L Anion Gap 16.3 H BUN 25 H Creatinine 1.20 GFR Calculation 85 BUN/Creatinine Ratio 20.00 Glucose 117 H Calculated Osmolality 279.7 Calcium 8.6 Magnesium 1.7 L - EKG EKG results: interpreted by me Quality Measures - VTE Contraindication to Pharmacological VTE Prophylaxis: Already on Theraputic Agent , No Prophylaxis Needed
[2016-12-23 04:35] LABS: Basophils # 0.1 10*3/uL (0.0-0.2); Basophils % 0.5 % (0.0-0.8); Eosinophils # 0.2 10*3/uL (0.0-0.87); Eosinophils % 1.6 % (0.00-10.9); Hematocrit 29.7 VOL% (42.0-52.0); Hemoglobin 9.5 GM/DL (14.0-18.0); Immature Granulocytes % 0.6 %; Immature Granulocytes Absolute 0.08 #; Lymphocytes # 2.3 10*3/uL (1.4-4.0); Lymphocytes % 16.7 % (21.2-54.2); Mean Corpuscular Hemoglobin 30 PG (27-34); Mean Platelet Volume 13.3 FL (9.6-12.0); Monocytes % 14.2 % (1.7-12.7); Neutrophils # 9.3 10*3/uL (1.4-7.4); Neutrophils % 66.4 % (38.7-73.9); Platelet Count 117 T/CUMM (130-400); Red Blood Count 3.16 MC/CUMM (3.8-5.5); Red Cell Distribution Width 13.8 % (9.3-17.3)
[2016-12-23 05:05] LABS: Calcium 8.1 MG/DL (8.5-10.1); Magnesium 1.8 MG/DL (1.8-2.4); Osmolality,Calculated 286.7 MOS/KG (273-304); Potassium 4.3 MMOL/L (3.5-5.1)
--- NOTE | 2016-12-23 07:10 | Discharge Summary ---
Hospital Course - Hospital Course Hospital Course: 81-year-old male admitted hospital with left femoral neck fracture and underlying severe osteoarthritis. He was taken to the operating suite where he underwent total hip arthroplasty. Tolerated procedure well was transferred for stable condition postoperatively. He received routine antibiotics and was restarted on Plavix and aspirin postoperatively. He is a patient of Dr. Crawford 's, cardiology was consulted for preoperative clearance. He was noted to have urinary tract infection preoperatively, this was treated with Rocephin IV daily. He progressed slowly with therapy and so that he would benefit from a stay in swing bed at discharge. Once a bed was available for subsequent discharge. At the time of discharge his wound was clean dry and he is neurovascularly intact in left lower extremity. Diagnosis - Discharge Diagnosis (1) Left displaced femoral neck fracture Status: Acute (2) Primary osteoarthritis of left hip Status: Acute Specialty Discharge - Follow Up or Referrals Follow up with: Mukul Flores MD [Physician] - (3-4 weeks) Discharge Plan - Discharge Data Disposition: Swing Bed, Hos Based, [facility] Condition at Discharge: Stable Discharge Diet: advance to your usual diet Activity: ambulate only with your walker Hygiene: may shower Weight Bearing at Discharge: weight bear as tolerated Contact your physician if you experience:: fever over 101, Difficulty voiding, Redness or swelling, Nausea/Vomiting, Shortness of breath, Bleeding, pain uncontrolled by pain medications Wound / Dressing Care Instructions: Okay to shower, no tub soaks. Daily dressing change. Harjinder out January 03, 2017 - Discharge Medications New Acetaminophen Tab [Tylenol Tab] 650 mg PO Q6H PRN #0 tablet PRN Reason: Pain Mild (1-3) HYDROcodone/ACETAMIN 7.5-325 [[place] 7.5-325] 1 - 2 tablet PO Q4H PRN #60 tablet PRN Reason: Pain Moderate (4-7) Sulfameth/Trimeth 800-160 Tab [Bactrim DS Tab] 1 tablet PO BID #10 tablet Docusate Sodium Cap [Colace Cap] 100 mg PO BID capsule Continue Tamsulosin [Flomax] 0.4 mg PO DAILY Cyanocobalamin Tab [Vitamin B12 Tab] 100 mcg PO DAILY Nitroglycerin Sl Tab [Nitrostat] 1 tablet SL Q5M PRN PRN Reason: Chest Pain Meloxicam [Mobic] 15 mg PO DAILY PRN PRN Reason: Pain Lisinopril 40 mg PO DAILY Gabapentin 100 mg PO BID Furosemide 40 mg PO DAILY PRN PRN Reason: Edema Colchicine [Colcrys] 0.6 mg PO BID Clopidogrel [Plavix] 75 mg PO DAILY amLODIPine [Norvasc] 5 mg PO DAILY Carvedilol 12.5 mg PO BID Aspirin Tab 325 mg PO DAILY Simvastatin 10 mg PO BEDTIME HYDROcodone/ACETAMIN 10-325 [[place] 10-325] 1 tablet PO Q12H PRN PRN Reason: Pain - Follow Up or Referral Follow Up: Mukul Flores MD [Physician] - (3-4 weeks) - Forms/Instructions Instructions: Total Hip Replacement (DC) Additional Discharge Instructions: Weight-bear as tolerated, hip precautions Exam - Constitutional Vitals: Period Temp Pulse Resp BP Sys/Roberts Pulse Ox Last 24 Hr 98.3 F-99.3 F 53-106 14-21 83-96/52-62 93-100 Discharge Results Procedures and tests throughout hospitalization: Pending Orders 12/24/16 04:00 BMP w/ Mg [Basic Metabolic Panel w/Mg] IN AM Labs on day of discharge: Labs from last 24 hours 12/23/16 12/23/16 03:10 03:10 WBC 14.0 H RBC 3.16 L Hgb 9.5 L Hct 29.7 L MCV 94.0 MCH 30 MCHC 32.0 RDW 13.8 Plt Count 117 L MPV 13.3 H Neut % (Auto) 66.4 Lymph % (Auto) 16.7 L [place] % (Auto) 14.2 H Eos % (Auto) 1.6 Baso % (Auto) 0.5 Neut # (Auto) 9.3 H Lymph # (Auto) 2.3 [place] # (Auto) 2.0 H Eos # (Auto) 0.2 Baso # (Auto) 0.1 Immature Gran % 0.6 Nucleated RBC % 0.0 Immature Gran # 0.08 Nucleated RBCs # 0.00 Sodium 138 Potassium 4.3 Chloride 105 Carbon Dioxide 22 Anion Gap 15.3 H BUN 42 H D Creatinine 1.80 H GFR Calculation 52 BUN/Creatinine Ratio 23.00 H Glucose 109 H Calculated Osmolality 286.7 Calcium 8.1 L Magnesium 1.8 DS: Provider Date of admission: 12/19/16 16:11 Primary care physician: Jhony Tello MD Attending physician on admission: Mukul Flores MD Consults: 12/19/16 15:01 Consult to Anesthesiology [CONS] Routine Consulting Provider: Reason for Anesthesiology: Pre-op Clearance Consult to Physician [CONS] Routine Comment: Consulting Provider: Surya Crawford Consulting Provider Notified: Yes When should Consulting Provider be notified: Now Person Notified: Albin Date Notified: 12/19/16 Time Notified: 14:10 12/19/16 15:44 Consult to Pastoral Services [CONS] Routine Comment: Pastoral Screen: Request Barrel Inspector Visit Pastoral Screen Source of Request: Patient 12/19/16 16:07 Consult to Dietitian [CONS] Routine Reason for Dietitian: Dietary Consult 12/19/16 16:11 Consult to Case Mgmt/Social Srvs [CONS] Routine Reason for Case Mgmt/Social Srvs: Rehab Home Health Equipment Consult Comment: Bedside Commode, CPM, Walker 12/19/16 16:19 Consult to Pharmacy [CONS] Routine Reason for Pharmacy Consult: Adjust Meds Renal Funct 12/20/16 12:24 Consult to Occupational Therapy [CONS] Routine Reason for Occupational Therapy: Evaluate and Treat Start Therapy: Tomorrow Consult Comment: ADL's Consult to Physical Therapy [CONS] Routine Reason for Physical Therapy: Evaluate and Treat Gait Training Start Therapy: Today Discharging clinician: Mukul Flores MD
--- NOTE | 2016-12-23 07:10 | Orthopedic Progress Note ---
Assessment and Plan (1) Left displaced femoral neck fracture Status: Acute Assessment and plan: Ambulate with therapy daily Continue Plavix Continue antibiotics for E. coli UTI Swing bed on tomorrow Current Visit: Yes (2) Primary osteoarthritis of left hip Status: Acute Assessment and plan: See above Current Visit: Yes Orthopedics - Subjective Interval history: Pain is improved. Patient ambulated in the hallway yesterday. He is sitting in the bedside chair this morning. Neurovascular exam is unchanged. Exam - Constitutional Vitals: Period Temp Pulse Resp BP Sys/Roberts Pulse Ox Last 24 Hr 98.3 F-99.3 F 53-106 14-21 83-96/52-62 93-100 Results - Labs CBC & BMP: 12/23/16 03:10 12/23/16 03:10 Quality Measures - VTE Contraindication to Pharmacological VTE Prophylaxis: Already on Theraputic Agent , No Prophylaxis Needed
[2016-12-23] MEDS: DOCUSATE SODIUM 100 MG CAPSULE PO SCH ×4 (08:15→20:03)
[2016-12-23] MEDS: CARVEDILOL 12.5 MG TABLET PO SCH ×2 (08:15→20:13)
[2016-12-23] MEDS: TAMSULOSIN 0.4 MG CAPSULE PO SCH (08:16)
[2016-12-23] MEDS: COLCHICINE 0.6 MG TABLET PO SCH ×2 (08:16→20:13)
[2016-12-23] MEDS: GABAPENTIN 100 MG CAPSULE PO SCH ×2 (08:16→20:13)
[2016-12-23] MEDS: ASPIRIN 325 MG TABLET PO SCH (08:16)
[2016-12-23] MEDS: CYANOCOBALAMIN 100 MCG TABLET PO SCH (08:16)
[2016-12-23] MEDS: cefTRIAXone 1,000 MG in SODIUM CHLORIDE 0.9% 100 ML IV SCH (08:17)
[2016-12-23] MEDS ORDERED: LISINOPRIL 2.5 MG TABLET PO SCH (09:00)
--- NOTE | 2016-12-23 12:25 | Cardiology Progress Note ---
Assessment and Plan (1) Preoperative evaluation to rule out surgical contraindication Status: Acute Assessment and plan: Initial assessment and plan 12/19/2016: The patient has CAD, but no active angina at this time Plan/recommendation: 1 continue beta-libertad Hold AHSAN inhibitor and/or Norvasc and low blood pressure Reduce aspirin 81 mg daily Watch carefully postop This patient's cardiac risk of noncardiac surgery relatively low. less than 2 % chance of [place] arrhythmia or heart failure You may proceed. I will follow along with. The above was discussed with the patient Thank you for allowing me to participate in this patient's care 12/20/16: plan/recommendation/assessment: No postop ischemia. No arrhythmias so far. Blood pressure is adequate. Continue meds. Monitor very carefully for signs and symptoms of ischemia. I had a long discussion with the patient, his , his daughter. They voiced understanding and agree with the plan. Assessment and plan 12/21/2016: No chest pain or shortness of breath. Ambulating well. He remains on his aspirin. Will restart the Plavix when Dr. Flores says it is okay to do so. Blood pressure is controlled. Continue to watch for any signs or symptoms of cardiac problems postop. 12/22/16: Assessment/plan/recommendation: No suggestion of ischemia. His blood pressure is borderline low. Will reduce the lisinopril to 2.5 mg p.o. every morning. Hold if systolic blood pressure is less than 120 mmHg at the dose -- and give hold parameters. Will stop the amlodipine for now. He could be restarted later, depending on when and if the blood pressure increases. I encouraged the patient to ambulate as best he can and to participate with the instructions of the physical therapist. He voices understanding and agrees with plan. 12/23/16: Assessment/plan/recommendation: No symptoms of ischemia. However, blood pressure is low and creatinine is increased. Will hold lisinopril. Have hold parameters for the carvedilol and the Flomax. Will give a trial of low volume normal saline and recheck BMP in a.m. Hopefully the findings above will turn around fairly quickly. Maybe he is slightly volume depleted. Current Visit: Yes (2) CAD (coronary artery disease) Status: Chronic Current Visit: Yes Qualifiers: Coronary Disease-Associated Artery/Lesion type: bypass graft [place] vs. transplanted heart: [place] heart Associated angina: without angina Qualified Code(s): I25.810 - Atherosclerosis of coronary artery bypass graft(s) without angina pectoris (3) Ischemic cardiomyopathy Status: Chronic Current Visit: Yes (4) Diabetes mellitus Status: Chronic Current Visit: Yes (5) Dyslipidemia Status: Chronic Current Visit: Yes (6) Hypertension Status: Chronic Current Visit: Yes Cardiology - PN: Subj Interval history: No chest pain or shortness of breath. Exam (Progress Note) - Constitutional Vitals: Period Temp Pulse Resp BP Sys/Roberts Pulse Ox Last 24 Hr 98.3 F-99.3 F 53-68 12-20 83-101/52-65 98-100 Exam: HEENT: Pupils equal, reactive to light and accommodation Neck: NoJVD or bruit Lungs clear to auscultation Heart: Regular rhythm rate with normal S1 and S2. Apical S4 Abdomen: No hepatosplenomegaly Spine/extremities: No clubbing, cyanosis, or edema Neuro: Nonfocal Psych: No depression or anxiety Result/EKG - Labs CBC & BMP: 12/23/16 03:10 12/23/16 03:10 Lab Results: I have reviewed the past 24 hour labs Labs: Laboratory Results - last 24 hr 12/23/16 12/23/16 03:10 03:10 WBC 14.0 H RBC 3.16 L Hgb 9.5 L Hct 29.7 L MCV 94.0 MCH 30 MCHC 32.0 RDW 13.8 Plt Count 117 L MPV 13.3 H Neut % (Auto) 66.4 Lymph % (Auto) 16.7 L [place] % (Auto) 14.2 H Eos % (Auto) 1.6 Baso % (Auto) 0.5 Neut # (Auto) 9.3 H Lymph # (Auto) 2.3 [place] # (Auto) 2.0 H Eos # (Auto) 0.2 Baso # (Auto) 0.1 Immature Gran % 0.6 Nucleated RBC % 0.0 Immature Gran # 0.08 Nucleated RBCs # 0.00 Sodium 138 Potassium 4.3 Chloride 105 Carbon Dioxide 22 Anion Gap 15.3 H BUN 42 H D Creatinine 1.80 H GFR Calculation 52 BUN/Creatinine Ratio 23.00 H Glucose 109 H Calculated Osmolality 286.7 Calcium 8.1 L Magnesium 1.8 Quality Measures - VTE Contraindication to Pharmacological VTE Prophylaxis: Already on Theraputic Agent , No Prophylaxis Needed Specialty Discharge - Follow Up or Referrals Follow up with: Mukul Flores MD [Physician] - (3-4 weeks)
[2016-12-23] MEDS ORDERED: SODIUM CHLORIDE 0.9% 1,000 ML IV SCH (12:30)
[2016-12-23] MEDS: SIMVASTATIN 10 MG TABLET PO SCH (20:13)
[2016-12-24 05:49] LABS: Magnesium 1.9 MG/DL (1.8-2.4); Osmolality,Calculated 288.5 MOS/KG (273-304); Potassium 4.4 MMOL/L (3.5-5.1)
[2016-12-24 07:23] VITALS: BP 90/54
--- NOTE | 2016-12-24 07:30 | Orthopedic Progress Note ---
Assessment and Plan (1) Left displaced femoral neck fracture Status: Acute Assessment and plan: Discharge to swing bed today Current Visit: Yes (2) Primary osteoarthritis of left hip Status: Acute Assessment and plan: See above Current Visit: Yes Orthopedics - Subjective Interval history: Patient is out of bed sitting in the bedside chair. Pain is controlled. On exam is neurovascular intact his wounds clean and dry Exam - Constitutional Vitals: Period Temp Pulse Resp BP Sys/Roberts Pulse Ox Last 24 Hr 97.5 F-99.2 F 18-69 18-20 90-116/54-68 96-99 Results - Labs CBC & BMP: 12/23/16 03:10 12/24/16 05:10 Quality Measures - VTE Contraindication to Pharmacological VTE Prophylaxis: Already on Theraputic Agent , No Prophylaxis Needed Specialty Discharge - Follow Up or Referrals Follow up with: Mukul Flores MD [Physician] - (3-4 weeks)
[2016-12-24] MEDS: TAMSULOSIN 0.4 MG CAPSULE PO SCH (09:41)
[2016-12-24] MEDS: CYANOCOBALAMIN 100 MCG TABLET PO SCH (09:41)
[2016-12-24] MEDS: CARVEDILOL 12.5 MG TABLET PO SCH (09:42)
[2016-12-24] MEDS: COLCHICINE 0.6 MG TABLET PO SCH (09:42)
[2016-12-24] MEDS: ASPIRIN 325 MG TABLET PO SCH (09:42)
[2016-12-24] MEDS: GABAPENTIN 100 MG CAPSULE PO SCH (09:43)
[2016-12-24] MEDS: DOCUSATE SODIUM 100 MG CAPSULE PO SCH ×2 (09:47)
[2016-12-24] MEDS: cefTRIAXone 1,000 MG in SODIUM CHLORIDE 0.9% 100 ML IV SCH (09:48)
--- NOTE | 2016-12-24 12:18 | Pathology Report from [facility] ---
ACCESSION # : [id number] PATIENT NAME : Jose Barnard ORDERING DR : Mukul Flores MD CLINICAL HX: LT displaced femoral neck FX POST-OP DX: Same SPECIMEN INFO: LT hip bone & tissue GROSS DESCRIPTION: The specimen is received in formalin labeled with the patient 's name and consists of a femoral head measuring 4.5 x 4.8 x 4.2 cm. The articular surfaces are focally degenerative with eburnation noted measuring up to 4.2 cm. The fractured surface is hemorrhagic and shaggy. There is marked bone softening noted. Also in the container are fragments of hemorrhagic tissue and fragments of femoral neck collectively measuring 8.9 x 6.2 cm. Transfer Operator tissue submitted in one cassette following decalcification. DIAGNOSIS FOR JOSE BARNARD: Left femoral head with fracture and changes of degenerative joint disease/ osteoarthritis. SERVICE DATE: 12/20/2016 REPORT DATE: 12/24/2016 PATHOLOGIST: Kike Melgar M.D. MTDD
== END 2016-12-24 10:51 | disposition swing bed (61) | DRG 470 ==
LOC: N.3E 13:29
PROVIDERS: ADMIT Orthopaedic Surgery; ATTEND Orthopaedic Surgery

== ENCOUNTER 2019-05-08 14:36 | Inpatient (IN) ==
[2019-05-08] MEDS ORDERED: SODIUM CHLORIDE 0.9% 1,000 ML IV STA ×2 (15:14→17:07)
[2019-05-08 16:13] LABS: Basophils # 0.1 10*3/uL (0.0-0.2); Basophils % 0.4 % (0.0-0.8); Eosinophils % 0.1 % (0.00-10.9); Hemoglobin 10.3 GM/DL (14.0-18.0); Immature Granulocytes % 0.7 %; Lymphocytes # 0.5 10*3/uL (1.4-4.0); Lymphocytes % 3.8 % (21.2-54.2); Mean Corpuscular HGB Conc 32.2 GM/DL (32-36); Mean Corpuscular Volume 96.4 FL (87-102); Mean Platelet Volume 12.6 FL (9.6-12.0); Monocytes % 11.8 % (1.7-12.7); Neutrophils % 83.2 % (38.7-73.9); Platelet Count 70 T/CUMM (130-400); Red Blood Count 3.32 MC/CUMM (3.8-5.5); Red Cell Distribution Width 14.6 % (9.3-17.3); White Blood Count 13.4 T/CUMM (4-12)
[2019-05-08 16:28] LABS: INR 1.4; PT Patient Result 14.8 SECS (9.6-12.2); Partial Thromboplastin Time 28.6 SECS (20.8-36.0)
[2019-05-08 16:31] LABS: Albumin 2.5 G/DL (3.4-5.0); Bilirubin,Total 1.8 MG/DL (0.2-1.0); Calcium 8.3 MG/DL (8.5-10.1); Osmolality,Calculated 292.8 MOS/KG (273-304); Total Protein 6.1 G/DL (6.4-8.3)
[2019-05-08 17:03] LABS: Apearance,Urine CLOUDY (Clear); Bacteria,Urine Many /HPF (Few); Bilirubin,Urine Negative (Negative); Blood, Urine Large mg/dL (Negative); Glucose,Urine (UA) Negative (Negative); Ketones,Urine Negative (Negative); Mucus,Urine Occasional /LPF (Occasional); Nitrite,Urine Negative (Negative); Protein,Urine 30 MG/DL; RBC,Urine 19 /HPF (0-4); Squamous Epithelial Cell,Urine Occasional /HPF (0-10); Urine Color Amber (Yellow); Urine Specific Gravity 1.012 (1.001-1.035); Urine Urobilinogen < 2.0 EU/DL (0.2-1.0); WBC,Urine 284 /HPF (0-6)
[2019-05-08 17:04] LABS: Band Neutrophils 3 % (0-10); Lymphocytes 5 % (20-55); Macrocytosis 2+; Polychromasia Slight; Segmented Neutrophils 86 % (50-85); Total Cells Counted 100
[2019-05-08 17:05] LABS: Platelet Estimate Adequate; Reactive Lymphocytes 1+
[2019-05-08] MEDS ORDERED: MEROPENEM 1,000 MG in SODIUM CHLORIDE 0.9% 100 ML IV STA ×2 (17:07→17:55)
[2019-05-08 17:20] LABS: Sedimentation Rate-Westergren 17 MM/HR (0-20)
[2019-05-08] MEDS ORDERED: PNEUMOCOCCAL VACCINE (13 VALENT) 0.5 ML SYRINGE IM ONE (19:18)
[2019-05-08] MEDS ORDERED: ONDANSETRON 4 MG/2 ML VIAL IV PRN (20:52)
[2019-05-08] MEDS ORDERED: DEXTROSE 10% 250 ML BAG IV PRN (20:52)
[2019-05-08] MEDS ORDERED: GLUCAGON 1 MG VIAL IM PRN (20:52)
[2019-05-08] MEDS ORDERED: LACTULOSE 20 GM/30 ML UDCUP PO PRN (20:52)
[2019-05-08] MEDS ORDERED: cefTRIAXone 2,000 MG in SYRINGE 1 EACH IV SCH (21:00)
[2019-05-08 21:18] LABS: Thyroid Stimulating Hormone 0.83 uIU/ml (0.358-3.74)
[2019-05-08] MEDS: GABAPENTIN 100 MG CAPSULE PO SCH (22:42)
[2019-05-08] MEDS: SIMVASTATIN 10 MG TABLET PO SCH (22:43)
[2019-05-08] MEDS: SODIUM CHLORIDE 0.9% 1,000 ML IV SCH (22:43)
[2019-05-08] MEDS: INSULIN REGULAR 100 UNIT/ML SUBCUT SCH (22:54)
[2019-05-09 05:03] LABS: Basophils % 0.3 % (0.0-0.8); Eosinophils % 0.2 % (0.00-10.9); Hematocrit 33.2 VOL% (42.0-52.0); Hemoglobin 10.7 GM/DL (14.0-18.0); Immature Granulocytes % 0.5 %; Immature Granulocytes Absolute 0.05 #; Lymphocytes # 0.5 10*3/uL (1.4-4.0); Lymphocytes % 5.2 % (21.2-54.2); Mean Corpuscular HGB Conc 32.2 GM/DL (32-36); Mean Corpuscular Volume 97.6 FL (87-102); Mean Platelet Volume 12.7 FL (9.6-12.0); Monocytes % 2.2 % (1.7-12.7); Neutrophils % 91.6 % (38.7-73.9); Platelet Count 64 T/CUMM (130-400); Red Cell Distribution Width 14.7 % (9.3-17.3); White Blood Count 9.5 T/CUMM (4-12)
[2019-05-09 05:29] LABS: Osmolality,Calculated 292.7 MOS/KG (273-304)
[2019-05-09 05:37] LABS: Band Neutrophils 10 % (0-10); Lymphocytes 6 % (20-55); Segmented Neutrophils 80 % (50-85); Total Cells Counted 100
[2019-05-09 05:38] LABS: Anisocytosis 1+; Platelet Estimate Decreased; Schistocytes Few
[2019-05-09] MEDS: INSULIN REGULAR 100 UNIT/ML SUBCUT SCH ×4 (08:30→21:59)
[2019-05-09] MEDS: ASPIRIN 325 MG TABLET PO SCH (08:39)
[2019-05-09] MEDS: CLOPIDOGREL 75 MG TABLET PO SCH (08:39)
[2019-05-09] MEDS: GABAPENTIN 100 MG CAPSULE PO SCH ×2 (08:39→21:37)
[2019-05-09] MEDS: MEROPENEM 1,000 MG in SODIUM CHLORIDE 0.9% 100 ML IV SCH ×2 (13:26→21:35)
[2019-05-09] MEDS: SODIUM CHLORIDE 0.9% 1,000 ML IV SCH (13:29)
[2019-05-09] MEDS: SIMVASTATIN 10 MG TABLET PO SCH (21:37)
[2019-05-10] MEDS: SODIUM CHLORIDE 0.9% 1,000 ML IV SCH (00:22)
[2019-05-10] MEDS: MEROPENEM 1,000 MG in SODIUM CHLORIDE 0.9% 100 ML IV SCH ×3 (02:52→20:30)
[2019-05-10 06:15] LABS: Basophils # 0.1 10*3/uL (0.0-0.2); Basophils % 0.5 % (0.0-0.8); Eosinophils # 0.3 10*3/uL (0.0-0.87); Eosinophils % 3.2 % (0.00-10.9); Hematocrit 30.7 VOL% (42.0-52.0); Hemoglobin 9.9 GM/DL (14.0-18.0); Immature Granulocytes % 0.4 %; Immature Granulocytes Absolute 0.04 #; Lymphocytes # 0.8 10*3/uL (1.4-4.0); Lymphocytes % 8.5 % (21.2-54.2); Mean Corpuscular HGB Conc 32.2 GM/DL (32-36); Mean Corpuscular Volume 96.2 FL (87-102); Mean Platelet Volume 13.8 FL (9.6-12.0); Monocytes % 12.6 % (1.7-12.7); Neutrophils % 74.8 % (38.7-73.9); Platelet Count 67 T/CUMM (130-400); Red Blood Count 3.19 MC/CUMM (3.8-5.5); Red Cell Distribution Width 14.7 % (9.3-17.3); White Blood Count 9.3 T/CUMM (4-12)
[2019-05-10 06:39] LABS: Calcium 7.8 MG/DL (8.5-10.1); Osmolality,Calculated 292.7 MOS/KG (273-304)
[2019-05-10 06:53] LABS: Band Neutrophils 3 % (0-10); Eosinophils 8 % (0-10); Lymphocytes 8 % (20-55); Segmented Neutrophils 74 % (50-85); Total Cells Counted 100
[2019-05-10 06:54] LABS: Anisocytosis 1+; Platelet Estimate Decreased
[2019-05-10] MEDS: INSULIN REGULAR 100 UNIT/ML SUBCUT SCH ×4 (07:46→20:31)
[2019-05-10] MEDS: ASPIRIN 325 MG TABLET PO SCH (09:39)
[2019-05-10] MEDS: GABAPENTIN 100 MG CAPSULE PO SCH ×2 (09:39→20:31)
[2019-05-10] MEDS: CLOPIDOGREL 75 MG TABLET PO SCH (09:39)
[2019-05-10] MEDS: SIMVASTATIN 10 MG TABLET PO SCH (20:31)
[2019-05-11] MEDS: MEROPENEM 1,000 MG in SODIUM CHLORIDE 0.9% 100 ML IV SCH (03:40)
[2019-05-11 05:41] LABS: Basophils # 0.1 10*3/uL (0.0-0.2); Eosinophils # 0.4 10*3/uL (0.0-0.87); Eosinophils % 6.1 % (0.00-10.9); Hematocrit 30.9 VOL% (42.0-52.0); Hemoglobin 10.2 GM/DL (14.0-18.0); Immature Granulocytes % 0.7 %; Immature Granulocytes Absolute 0.04 #; Lymphocytes # 0.8 10*3/uL (1.4-4.0); Mean Corpuscular Volume 95.7 FL (87-102); Neutrophils % 63.2 % (38.7-73.9); Platelet Count 71 T/CUMM (130-400); Red Blood Count 3.23 MC/CUMM (3.8-5.5); Red Cell Distribution Width 14.6 % (9.3-17.3)
[2019-05-11 06:06] LABS: Calcium 7.7 MG/DL (8.5-10.1)
[2019-05-11 06:08] LABS: Hypochromasia 1+
[2019-05-11 06:09] LABS: Platelet Estimate Decreased
[2019-05-11 06:09] LABS: Calcium 7.8 MG/DL (8.5-10.1); Osmolality,Calculated 283.1 MOS/KG (273-304)
[2019-05-11] MEDS ORDERED: MAGNESIUM SULF RIDER 2 GM in PREMIX 1 EACH IV PRN (07:27)
[2019-05-11] MEDS ORDERED: MAGNESIUM SULF RIDER 4 GM in PREMIX 1 EACH IV PRN (07:27)
[2019-05-11] MEDS: INSULIN REGULAR 100 UNIT/ML SUBCUT SCH ×4 (09:06→21:51)
[2019-05-11] MEDS: ASPIRIN 325 MG TABLET PO SCH (09:13)
[2019-05-11] MEDS: CLOPIDOGREL 75 MG TABLET PO SCH (09:13)
[2019-05-11] MEDS: GABAPENTIN 100 MG CAPSULE PO SCH ×2 (09:13→21:48)
[2019-05-11] MEDS: LEVOFLOXACIN 750 MG TABLET PO SCH (09:14)
[2019-05-11] MEDS: ACETAMINOPHEN 325 MG TABLET PO PRN (13:20)
[2019-05-11] MEDS: POTASSIUM CHLORIDE 20 MEQ TABLET PO PRN ×3 (18:02→23:39)
[2019-05-11] MEDS: SIMVASTATIN 10 MG TABLET PO SCH (21:49)
[2019-05-12 06:03] LABS: Basophils # 0.1 10*3/uL (0.0-0.2); Basophils % 0.8 % (0.0-0.8); Eosinophils # 0.5 10*3/uL (0.0-0.87); Eosinophils % 8.4 % (0.00-10.9); Hematocrit 30.3 VOL% (42.0-52.0); Hemoglobin 9.7 GM/DL (14.0-18.0); Immature Granulocytes Absolute 0.06 #; Lymphocytes # 1.1 10*3/uL (1.4-4.0); Mean Corpuscular Volume 95.3 FL (87-102); Mean Platelet Volume 12.7 FL (9.6-12.0); Monocytes % 14.2 % (1.7-12.7); Neutrophils % 57.6 % (38.7-73.9); Platelet Count 79 T/CUMM (130-400); Red Blood Count 3.18 MC/CUMM (3.8-5.5); Red Cell Distribution Width 14.6 % (9.3-17.3); White Blood Count 6.1 T/CUMM (4-12)
[2019-05-12 06:24] LABS: Calcium 8.1 MG/DL (8.5-10.1); Platelet Estimate Decreased
[2019-05-12] MEDS: CLOPIDOGREL 75 MG TABLET PO SCH (08:36)
[2019-05-12] MEDS: GABAPENTIN 100 MG CAPSULE PO SCH (08:36)
[2019-05-12] MEDS: ASPIRIN 325 MG TABLET PO SCH (08:36)
[2019-05-12] MEDS: LEVOFLOXACIN 750 MG TABLET PO SCH (08:37)
[2019-05-12] MEDS: INSULIN REGULAR 100 UNIT/ML SUBCUT SCH ×3 (08:37→16:01)
[2019-05-12 11:57] VITALS: BP 127/72
[2019-05-12] MEDS: ACETAMINOPHEN 325 MG TABLET PO PRN (11:59)
== END 2019-05-12 16:05 | disposition home or self-care (01) | DRG 872 ==
LOC: EDBD → EDUNIT# → N.ED 14:36 → N.EDINP 18:04 → SUATTDRO 18:04 → N.EDINP 19:05 → N.2E 19:18
PROVIDERS: ADMIT Family Medicine; ATTEND Hospitalist

== ENCOUNTER 2020-07-01 06:58 | Inpatient (IN) ==
[2020-07-01 07:56] LABS: Basophils # 0.1 10*3/uL (0.0-0.2); Basophils % 1.1 % (0.0-0.8); Eosinophils # 0.2 10*3/uL (0.0-0.87); Eosinophils % 4.5 % (0.00-10.9); Hematocrit 32.4 VOL% (42.0-52.0); Hemoglobin 11.1 GM/DL (14.0-18.0); Immature Granulocytes % 0.5 %; Immature Granulocytes Absolute 0.02 #; Lymphocytes # 0.9 10*3/uL (1.4-4.0); Mean Corpuscular HGB Conc 34.3 GM/DL (32-36); Mean Platelet Volume 12.4 FL (9.6-12.0); Monocytes % 12.5 % (1.7-12.7); Neutrophils % 61.4 % (38.7-73.9); Platelet Count 66 T/CUMM (130-400); Red Blood Count 3.41 MC/CUMM (3.8-5.5); White Blood Count 4.4 T/CUMM (4-12)
[2020-07-01 08:01] LABS: INR 1.2; Partial Thromboplastin Time 29.9 SECS (23.9-33.8)
[2020-07-01 08:12] LABS: Albumin 2.4 G/DL (3.4-5.0); Bilirubin,Total 0.9 MG/DL (0.2-1.0); Calcium 7.8 MG/DL (8.5-10.1); Osmolality,Calculated 291.1 MOS/KG (273-304); Total Protein 5.5 G/DL (6.4-8.3)
[2020-07-01 08:13] LABS: Hypochromasia 1+; Platelet Estimate Decreased
[2020-07-01 09:00] LABS: Bacteria,Urine Occasional /HPF (Few); Bilirubin,Urine Negative (Negative); Blood, Urine Negative (Negative); Glucose,Urine (UA) Negative (Negative); Hyaline Casts,Urine 1 /LPF (0-3); Ketones,Urine Negative (Negative); Mucus,Urine Occasional /LPF (Occasional); Nitrite,Urine Negative (Negative); Protein,Urine Negative; RBC,Urine 1 /HPF (0-4); Squamous Epithelial Cell,Urine Occasional /HPF (0-10); Urine Appearance CLEAR (Clear); Urine Color Yellow (Yellow); Urine Specific Gravity 1.012 (1.001-1.035); Urine Urobilinogen < 2.0 EU/DL (0.2-1.0); WBC,Urine 1 /HPF (0-6)
[2020-07-01] MEDS ORDERED: SODIUM CHLORIDE 0.9% 500 ML IV STA (09:17)
[2020-07-01] MEDS ORDERED: GLUCAGON 1 MG VIAL IM PRN (11:19)
[2020-07-01] MEDS ORDERED: DEXTROSE 50% 25 GM/50 ML VIAL IV PRN (11:19)
[2020-07-01] MEDS ORDERED: hydrALAZINE 20 MG/1 ML VIAL IV PRN (11:19)
[2020-07-01] MEDS ORDERED: ACETAMINOPHEN 325 MG TABLET PO PRN (11:19)
[2020-07-01] MEDS ORDERED: DOCUSATE SODIUM 100 MG CAPSULE PO PRN (11:19)
[2020-07-01] MEDS ORDERED: ONDANSETRON 4 MG/2 ML VIAL IV PRN (11:19)
[2020-07-01 11:52] LABS: Risk Ratio 2.74; Thyroid Stimulating Hormone 3.81 uIU/ml (0.358-3.74); VLDL CHOLESTEROL 16.2 MG/DL
[2020-07-01] MEDS: SODIUM CHLORIDE 0.9% 1,000 ML IV SCH (14:38)
[2020-07-01 14:48] LABS: Bilirubin,Urine Negative (Negative); Blood, Urine Negative (Negative); Glucose,Urine (UA) Negative (Negative); Ketones,Urine Negative (Negative); Nitrite,Urine Negative (Negative); Protein,Urine Negative; RBC,Urine 1 /HPF (0-4); Urine Appearance CLEAR (Clear); Urine Color Yellow (Yellow); Urine Specific Gravity 1.021 (1.001-1.035); Urine Urobilinogen < 2.0 EU/DL (0.2-1.0); WBC,Urine 3 /HPF (0-6)
[2020-07-01] MEDS: LACTULOSE 20 GM/30 ML UDCUP PO SCH ×3 (15:09→21:03)
[2020-07-01] MEDS ORDERED: MAGNESIUM SULF RIDER 2 GM in PREMIX 1 EACH IV ONE (15:54)
[2020-07-01] MEDS: carvediloL 3.125 MG TABLET PO SCH (20:55)
[2020-07-01] MEDS: CARBIDOPA/LEVODOPA 10-100 MG TABLET PO SCH (20:55)
[2020-07-01] MEDS: SIMVASTATIN 10 MG TABLET PO SCH (20:55)
[2020-07-02] MEDS: LACTULOSE 20 GM/30 ML UDCUP PO SCH ×6 (02:22→21:13)
[2020-07-02 05:51] LABS: Basophils % 0.9 % (0.0-0.8); Eosinophils # 0.2 10*3/uL (0.0-0.87); Eosinophils % 4.4 % (0.00-10.9); Hematocrit 29.1 VOL% (42.0-52.0); Hemoglobin 9.9 GM/DL (14.0-18.0); Immature Granulocytes % 0.4 %; Immature Granulocytes Absolute 0.02 #; Lymphocytes # 0.8 10*3/uL (1.4-4.0); Mean Corpuscular Volume 95.1 FL (87-102); Mean Platelet Volume 12.8 FL (9.6-12.0); Monocytes % 13.8 % (1.7-12.7); Neutrophils % 62.5 % (38.7-73.9); Platelet Count 71 T/CUMM (130-400); Red Blood Count 3.06 MC/CUMM (3.8-5.5); White Blood Count 4.6 T/CUMM (4-12)
[2020-07-02 06:09] LABS: Calcium 7.6 MG/DL (8.5-10.1); Osmolality,Calculated 289.1 MOS/KG (273-304)
[2020-07-02 06:12] LABS: Bilirubin,Direct 0.3 MG/DL (0.0-0.20); Bilirubin,Indirect 1.3 MG/DL (0.0-1.0); Bilirubin,Total 1.6 MG/DL (0.2-1.0); Total Protein 4.9 G/DL (6.4-8.3)
[2020-07-02 08:01] LABS: Hypochromasia 1+; Ovalocytes Few; Platelet Estimate Adequate; Polychromasia Slight; Schistocytes Slight
[2020-07-02] MEDS: FUROSEMIDE 40 MG/4 ML VIAL IV SCH (08:09)
[2020-07-02] MEDS: CARBIDOPA/LEVODOPA 10-100 MG TABLET PO SCH ×2 (08:12→20:28)
[2020-07-02] MEDS: PANTOPRAZOLE 40 MG TABLET PO SCH (08:12)
[2020-07-02] MEDS: TAMSULOSIN 0.4 MG CAPSULE PO SCH (08:12)
[2020-07-02] MEDS: carvediloL 3.125 MG TABLET PO SCH ×2 (08:12→20:28)
[2020-07-02] MEDS: ASPIRIN 325 MG TABLET PO SCH (08:18)
[2020-07-02] MEDS: CYANOCOBALAMIN 100 MCG TABLET PO SCH (08:18)
[2020-07-02] MEDS: SODIUM CHLORIDE 0.9% 1,000 ML IV SCH (08:22)
[2020-07-02 08:39] LABS: Free T4 (Free Thyroxine) 1.29 NG/DL (0.76-1.46)
[2020-07-02] MEDS: POTASSIUM CHLORIDE 20 MEQ TABLET PO PRN ×4 (09:04→17:03)
[2020-07-02] MEDS: SIMVASTATIN 10 MG TABLET PO SCH (20:28)
[2020-07-03] MEDS: LACTULOSE 20 GM/30 ML UDCUP PO SCH ×5 (01:57→21:48)
[2020-07-03 07:12] LABS: Basophils # 0.1 10*3/uL (0.0-0.2); Basophils % 1.1 % (0.0-0.8); Eosinophils # 0.3 10*3/uL (0.0-0.87); Eosinophils % 5.2 % (0.00-10.9); Hematocrit 31.1 VOL% (42.0-52.0); Hemoglobin 10.4 GM/DL (14.0-18.0); Immature Granulocytes % 0.4 %; Immature Granulocytes Absolute 0.02 #; Lymphocytes % 19.3 % (21.2-54.2); Mean Corpuscular HGB Conc 33.4 GM/DL (32-36); Mean Platelet Volume 12.8 FL (9.6-12.0); Monocytes % 10.9 % (1.7-12.7); Neutrophils % 63.1 % (38.7-73.9); Platelet Count 78 T/CUMM (130-400); Red Blood Count 3.24 MC/CUMM (3.8-5.5); White Blood Count 5.3 T/CUMM (4-12)
[2020-07-03 07:21] LABS: Calcium 7.8 MG/DL (8.5-10.1)
[2020-07-03 07:31] LABS: Bilirubin,Direct 0.35 MG/DL (0.0-0.20); Bilirubin,Indirect 0.5 MG/DL (0.0-1.0); Bilirubin,Total 0.8 MG/DL (0.2-1.0); Total Protein 4.7 G/DL (6.4-8.3)
[2020-07-03] MEDS: PANTOPRAZOLE 40 MG TABLET PO SCH (09:15)
[2020-07-03] MEDS: CYANOCOBALAMIN 100 MCG TABLET PO SCH (09:15)
[2020-07-03] MEDS: carvediloL 3.125 MG TABLET PO SCH ×2 (09:15→21:48)
[2020-07-03] MEDS: FUROSEMIDE 40 MG/4 ML VIAL IV SCH (09:15)
[2020-07-03] MEDS: CARBIDOPA/LEVODOPA 10-100 MG TABLET PO SCH ×2 (09:15→21:47)
[2020-07-03] MEDS: TAMSULOSIN 0.4 MG CAPSULE PO SCH (09:15)
[2020-07-03] MEDS: ASPIRIN 325 MG TABLET PO SCH (09:16)
[2020-07-03 09:35] LABS: Hepatitis B Core IgM Quant 0.14 Index; Hepatitis B Surface Ag Quant < 0.10 Index; Hepatitis B Surface Ag Result Negative (Negative); Hepatitis C Virus Ab Quant 0.02 Index; Hepatitis C Virus Ab Result Negative (Negative)
[2020-07-03] MEDS ORDERED: TUBERCULIN SKIN TEST 0.1 ML SYRINGE INTRADERM ONE (10:34)
[2020-07-03 10:44] LABS: Microcytosis Slight; Polychromasia Slight
[2020-07-03 10:45] LABS: Anisocytosis 1+; Macrocytosis 1+; Ovalocytes Slight; Platelet Estimate Adequate
[2020-07-03] MEDS: SIMVASTATIN 10 MG TABLET PO SCH (21:47)
[2020-07-04 06:14] LABS: Basophils # 0.1 10*3/uL (0.0-0.2); Eosinophils # 0.3 10*3/uL (0.0-0.87); Eosinophils % 5.4 % (0.00-10.9); Hematocrit 29.5 VOL% (42.0-52.0); Hemoglobin 10.1 GM/DL (14.0-18.0); Immature Granulocytes % 0.4 %; Immature Granulocytes Absolute 0.02 #; Lymphocytes % 19.5 % (21.2-54.2); Mean Corpuscular HGB Conc 34.2 GM/DL (32-36); Mean Corpuscular Volume 95.2 FL (87-102); Mean Platelet Volume 12.4 FL (9.6-12.0); Neutrophils % 63.7 % (38.7-73.9); Platelet Count 73 T/CUMM (130-400); Red Cell Distribution Width 15.9 % (9.3-17.3)
[2020-07-04 06:32] LABS: Calcium 7.9 MG/DL (8.5-10.1); Osmolality,Calculated 286.1 MOS/KG (273-304)
[2020-07-04 06:37] LABS: Albumin 1.9 G/DL (3.4-5.0); Bilirubin,Direct 0.34 MG/DL (0.0-0.20); Bilirubin,Indirect 1.6 MG/DL (0.0-1.0); Bilirubin,Total 1.9 MG/DL (0.2-1.0); Total Protein 4.6 G/DL (6.4-8.3)
[2020-07-04 07:01] LABS: Hypochromasia Slight; Platelet Estimate Decreased
[2020-07-04 07:02] LABS: Microcytosis Slight
[2020-07-04] MEDS: ASPIRIN 325 MG TABLET PO SCH (09:39)
[2020-07-04] MEDS: FUROSEMIDE 40 MG TABLET PO SCH ×2 (09:39→17:41)
[2020-07-04] MEDS: PANTOPRAZOLE 40 MG TABLET PO SCH (09:39)
[2020-07-04] MEDS: LACTULOSE 20 GM/30 ML UDCUP PO SCH ×3 (09:39→20:27)
[2020-07-04] MEDS: carvediloL 3.125 MG TABLET PO SCH (09:39)
[2020-07-04] MEDS: TAMSULOSIN 0.4 MG CAPSULE PO SCH (09:39)
[2020-07-04] MEDS: CYANOCOBALAMIN 100 MCG TABLET PO SCH (09:40)
[2020-07-04] MEDS: CARBIDOPA/LEVODOPA 10-100 MG TABLET PO SCH ×2 (09:40→20:26)
[2020-07-04] MEDS: SIMVASTATIN 10 MG TABLET PO SCH (20:26)
[2020-07-05] MEDS: carvediloL 3.125 MG TABLET PO SCH ×2 (01:59→09:39)
[2020-07-05 05:29] LABS: Basophils # 0.1 10*3/uL (0.0-0.2); Basophils % 1.5 % (0.0-0.8); Eosinophils # 0.2 10*3/uL (0.0-0.87); Eosinophils % 4.8 % (0.00-10.9); Hematocrit 32.3 VOL% (42.0-52.0); Hemoglobin 10.9 GM/DL (14.0-18.0); Immature Granulocytes % 0.6 %; Immature Granulocytes Absolute 0.03 #; Lymphocytes # 0.9 10*3/uL (1.4-4.0); Lymphocytes % 19.5 % (21.2-54.2); Mean Corpuscular HGB Conc 33.7 GM/DL (32-36); Monocytes % 10.9 % (1.7-12.7); Neutrophils % 62.7 % (38.7-73.9); Red Cell Distribution Width 15.5 % (9.3-17.3); White Blood Count 4.8 T/CUMM (4-12)
[2020-07-05 05:31] LABS: Platelet Count 77 T/CUMM (130-400)
[2020-07-05 05:50] LABS: Hypochromasia Slight; Microcytosis Slight; Platelet Estimate Decreased
[2020-07-05 05:52] LABS: Calcium 7.9 MG/DL (8.5-10.1); Osmolality,Calculated 279.7 MOS/KG (273-304)
[2020-07-05 05:56] LABS: Troponin I 0.037 NG/ML (0.00-0.045)
[2020-07-05 07:35] LABS: Albumin 1.9 G/DL (3.4-5.0); Bilirubin,Direct 0.32 MG/DL (0.0-0.20); Bilirubin,Indirect 0.5 MG/DL (0.0-1.0); Bilirubin,Total 0.8 MG/DL (0.2-1.0); Total Protein 5.3 G/DL (6.4-8.3)
[2020-07-05] MEDS: ASPIRIN 325 MG TABLET PO SCH (09:39)
[2020-07-05] MEDS: CYANOCOBALAMIN 100 MCG TABLET PO SCH (09:39)
[2020-07-05] MEDS: FUROSEMIDE 40 MG TABLET PO SCH (09:39)
[2020-07-05] MEDS: PANTOPRAZOLE 40 MG TABLET PO SCH (09:39)
[2020-07-05] MEDS: CARBIDOPA/LEVODOPA 10-100 MG TABLET PO SCH (09:39)
[2020-07-05] MEDS: TAMSULOSIN 0.4 MG CAPSULE PO SCH (09:39)
[2020-07-05] MEDS: LACTULOSE 20 GM/30 ML UDCUP PO SCH (09:57)
[2020-07-05 17:05] VITALS: BP 118/60
== END 2020-07-05 16:15 | disposition swing bed (61) | DRG 441 ==
LOC: EDUNIT# → EDBD → N.ED 06:58 → N.EDINP 06:58 → N.3E 13:16 → SUATTDRO 07-02 08:49 → N.3E 07-05 08:18
PROVIDERS: ADMIT Internal Medicine; ATTEND Hospitalist